=== PATIENT | female | born 1935 | race Caucasian/White ===

== ENCOUNTER 2018-01-11 10:33 | Observation (INO) | payer OTHER ==
[~2018-01-11] VITALS: Ht 152.4 cm; Wt 46.0 kg
[2018-01-11] VITALS (9 sets, daily range): BP systolic 122–165; BP diastolic 57–89; PULSE 68–124; RESP 17–20; TEMP 97.8–98.8; O2SAT 95–100
[~2018-01-11 10:33] MED LIST: AMBI10TA PO; CEPH-460 PO; GABA300C5 PO; LISI10TA3 PO
[2018-01-11] MEDS ORDERED: SODIUM CHLOR 0.9% 1000 ML INJ 1,000 ML IV ONE (11:04)
--- NOTE | 2018-01-11 11:13 | PD ---
HPI Chief Complaint: Syncope/Near-Syncope Time Seen by Provider: 10:51 Travel History International Travel<30 days: No Contact w/Intl Traveler<30days: No Traveled to known affect area: No History of Present Illness HPI The patient is a 82-year-old female who presents to the emergency department for syncope. According to EMS the patient had 2 episodes of syncope/ near-syncope earlier today with diaphoresis, lightheadedness, and questionable loss of consciousness. According to EMS the patient has been having some rectal bleeding on and off for several weeks, the patient does have a sample with her that reveals the blood and mucus. According to EMS the patient had 2 runs of SVT prior to arrival and received adenosine 6 mg intravenously which resolved the SVT. The patient does have a history of fibromyalgia, does note one previous episode of rectal bleeding, however, is unsure if she had a colonoscopy performed at that time. The patient does complain of lightheadedness and dizziness, worse with standing and walking, as well as with exertion. Symptoms are moderate. There are no current alleviating factors. PFSH Past Medical History Cardiovascular Problems: Yes (HTN) Fibromyalgia: Yes Gastrointestinal Disorders: Yes (GASTRITIS) Genitourinary: Yes Hypertension: Yes Kidney Stones: Yes ?: Not : 1 Para: 1 Past Surgical History Cholecystectomy: Yes Social History Alcohol Use: No Tobacco Use: No Substance Use: No Allergies-Medications (Allergen,Severity, Reaction): Coded Allergies: No Known Allergies (Unverified , 11/13/16) Reported Meds & Prescriptions Reported Meds & Active Scripts Active Keflex (Cephalexin) 500 Mg Cap 500 Mg PO BID 7 Days Reported Ambien (Zolpidem Tartrate) 10 Mg Tab 10 Mg PO HS PRN Lisinopril 10 Mg Tab 10 Mg PO DAILY Gabapentin 300 Mg Cap 300 Mg PO BID Review of Systems Except as stated in HPI: all other systems reviewed are Neg General / Constitutional: No: Fever HENT: Positive: Lightheadedness Cardiovascular: Positive: Syncope, Dyspnea on exertion, No: Chest Pain or Discomfort Respiratory: Positive: Shortness of Breath Gastrointestinal: Positive: Abdominal Pain (mild lower abdominal discomfort), Hematochezia, No: Nausea, Vomiting Musculoskeletal: Positive: Weakness Neurologic: Positive: Weakness, Dizziness, Syncope, No: Change in Mentation Physical Exam Narrative GENERAL: Awake, alert, 82-year-old female who appears her stated age and is in no acute respiratory distress. SKIN: Focused skin assessment warm/dry. HEAD: Atraumatic. Normocephalic. EYES: Pupils equal and round. Mild pallor noted. Pain and eyebrows. ENT: No nasal bleeding or discharge. Mucous membranes pink and moist. NECK: Trachea midline. No JVD. CARDIOVASCULAR: Regular rate and rhythm. No murmur appreciated. RESPIRATORY: No accessory muscle use. Clear to auscultation. Breath sounds equal bilaterally. GASTROINTESTINAL: Abdomen soft, mild tenderness bilateral lower quadrants, no guarding or rigidity. Rectal exam: The exam was performed in the presence of a female nurse. No gross blood. Guaiac negative. MUSCULOSKELETAL: No obvious deformities. No clubbing. No cyanosis. No edema. NEUROLOGICAL: Awake and alert. No obvious cranial nerve deficits. Motor grossly within normal limits. Normal speech. PSYCHIATRIC: Appropriate mood and affect; insight and judgment normal. Data Data Last Documented VS Vital Signs Date Time Temp Pulse Resp B/P (MAP) Pulse Ox O2 Delivery O2 Flow Rate FiO2 01/11/18 11:24 87 122/57 (78) 93 132/82 (99) 93 129/63 (85) 01/11/18 11:23 100 Room Air 01/11/18 10:43 97.8 20 Orders Orders Electrocardiogram (01/11/18 11:04) Complete Blood Count With Diff (01/11/18 11:04) Comprehensive Metabolic Panel (01/11/18 11:04) Magnesium (Mg) (01/11/18 11:04) Ckmb (Isoenzyme) Profile (01/11/18 11:04) Troponin I (01/11/18 11:04) Act Partial Throm Time (Ptt) (01/11/18 11:04) Prothrombin Time / Inr (Pt) (01/11/18 11:04) Chest, Single Ap (01/11/18 11:04) Ecg Monitoring (01/11/18 11:04) Iv Access Insert/Monitor (01/11/18 11:04) Oximetry (01/11/18 11:04) Sodium Chloride 0.9% Flush (Ns Flush) (01/11/18 11:15) Sodium Chlor 0.9% 1000 Ml Inj (Ns 1000 M (01/11/18 11:04) Orthostatic Vital Signs (01/11/18 11:04) Labs Laboratory Tests Test 01/11/18 11:00 White Blood Count 5.9 TH/MM3 Red Blood Count 3.64 MIL/MM3 Hemoglobin 10.4 GM/DL Hematocrit 31.4 % Mean Corpuscular Volume 86.2 FL Mean Corpuscular Hemoglobin 28.6 PG Mean Corpuscular Hemoglobin Concent 33.2 % Red Cell Distribution Width 13.0 % Platelet Count 335 TH/MM3 Mean Platelet Volume 7.9 FL Neutrophils (%) (Auto) 69.9 % Lymphocytes (%) (Auto) 20.1 % Monocytes (%) (Auto) 8.6 % Eosinophils (%) (Auto) 1.1 % Basophils (%) (Auto) 0.3 % Neutrophils # (Auto) 4.1 TH/MM3 Lymphocytes # (Auto) 1.2 TH/MM3 Monocytes # (Auto) 0.5 TH/MM3 Eosinophils # (Auto) 0.1 TH/MM3 Basophils # (Auto) 0.0 TH/MM3 CBC Comment DIFF FINAL Differential Comment Prothrombin Time 10.4 SEC Prothromb Time International Ratio 1.0 RATIO Activated Partial Thromboplast Time 20.7 SEC Blood Urea Nitrogen 15 MG/DL Creatinine 0.78 MG/DL Random Glucose 108 MG/DL Total Protein 7.3 GM/DL Albumin 3.3 GM/DL Calcium Level 8.8 MG/DL Magnesium Level 2.0 MG/DL Alkaline Phosphatase 118 U/L Aspartate Amino Transf (AST/SGOT) 35 U/L Alanine Aminotransferase (ALT/SGPT) 50 U/L Total Bilirubin 0.2 MG/DL Sodium Level 142 MEQ/L Potassium Level 4.3 MEQ/L Chloride Level 109 MEQ/L Carbon Dioxide Level 25.1 MEQ/L Anion Gap 8 MEQ/L Estimat Glomerular Filtration Rate 71 ML/MIN Total Creatine Kinase 59 U/L Troponin I LESS THAN 0.02 NG/ML MDM Medical Decision Making Medical Screen Exam Complete: Yes Emergency Medical Condition: Yes Medical Record Reviewed: Yes Interpretation(s) EKG reveals normal sinus rhythm with a rate in 94. No ischemic changes or ectopy noted. Last Impressions Chest X-Ray 01/11/18 1104 Signed Impressions: Service Date/Time: Thursday, January 11, 2018 11:15 - CONCLUSION: 1. No acute cardiopulmonary disease. Agustin Saleh MD Laboratory Tests Test 01/11/18 11:00 White Blood Count 5.9 TH/MM3 Red Blood Count 3.64 MIL/MM3 Hemoglobin 10.4 GM/DL Hematocrit 31.4 % Mean Corpuscular Volume 86.2 FL Mean Corpuscular Hemoglobin 28.6 PG Mean Corpuscular Hemoglobin Concent 33.2 % Red Cell Distribution Width 13.0 % Platelet Count 335 TH/MM3 Mean Platelet Volume 7.9 FL Neutrophils (%) (Auto) 69.9 % Lymphocytes (%) (Auto) 20.1 % Monocytes (%) (Auto) 8.6 % Eosinophils (%) (Auto) 1.1 % Basophils (%) (Auto) 0.3 % Neutrophils # (Auto) 4.1 TH/MM3 Lymphocytes # (Auto) 1.2 TH/MM3 Monocytes # (Auto) 0.5 TH/MM3 Eosinophils # (Auto) 0.1 TH/MM3 Basophils # (Auto) 0.0 TH/MM3 CBC Comment DIFF FINAL Differential Comment Prothrombin Time 10.4 SEC Prothromb Time International Ratio 1.0 RATIO Activated Partial Thromboplast Time 20.7 SEC Blood Urea Nitrogen 15 MG/DL Creatinine 0.78 MG/DL Random Glucose 108 MG/DL Total Protein 7.3 GM/DL Albumin 3.3 GM/DL Calcium Level 8.8 MG/DL Magnesium Level 2.0 MG/DL Alkaline Phosphatase 118 U/L Aspartate Amino Transf (AST/SGOT) 35 U/L Alanine Aminotransferase (ALT/SGPT) 50 U/L Total Bilirubin 0.2 MG/DL Sodium Level 142 MEQ/L Potassium Level 4.3 MEQ/L Chloride Level 109 MEQ/L Carbon Dioxide Level 25.1 MEQ/L Anion Gap 8 MEQ/L Estimat Glomerular Filtration Rate 71 ML/MIN Total Creatine Kinase 59 U/L Troponin I LESS THAN 0.02 NG/ML Differential Diagnosis Differential diagnosis includes arrhythmia, dysrhythmia, tachyarrhythmia, symptomatically anemia, electrolyte abnormality, dehydration, vasovagal syncope , aortic stenosis. Narrative Course IV was established, labs are drawn and sent, and the patient was placed on cardiac telemetry monitoring and continuous pulse oximetry monitoring. EKG was ordered and interpreted. Rectal exam was performed, no gross blood, guaiac negative. Patient did have SVT according to EMS, has cardiac strip from EMS which does reveal SVT. Orthostatic vital signs were obtained. The patient was administered IV fluids. The patient's hemoglobin is 10.3, she has a history of IBS with 4 previous colonoscopies by her medical secretary receptionist, Dr. Solis. The patient did have SVT prior to arrival with 2 syncopal episodes, will need 23 hour observation for telemetry monitoring and echocardiogram. If the patient has further runs of SVT or dysrhythmias, she may be a candidate for beta luke and possibly cardiology evaluation. The [facility] [employer]. Orthostatic vital signs are unremarkable. Physician Communication Physician Communication The patient has [employer], [facility] Diagnosis Primary Impression: Syncope Qualified Codes: R55 - Syncope and collapse Additional Impressions: SVT (supraventricular tachycardia) Hematochezia Admitting Information Admitting Physician Requests: Observation Condition: Stable Peter Rebolledo MD Jan 11, 2018 11:13
[2018-01-11] MEDS ORDERED: SODIUM CHLORIDE 0.9% FLUSH 10 ML FLUSH IVF PRN (11:15)
[2018-01-11 11:40] LABS: AUTOMATED NEUTROPHIL # 4.1 TH/MM3 (1.8-7.7); BASOPHIL % 0.3 % (0.0-2.0); EOSINOPHIL # 0.1 TH/MM3 (0-0.4); EOSINOPHIL % 1.1 % (0.0-4.0); HEMATOCRIT 31.4 % (35.0-46.0); HEMOGLOBIN 10.4 GM/DL (11.6-15.3); LYMPH % 20.1 % (9.0-44.0); LYMPHOCYTE # 1.2 TH/MM3 (1.0-4.8); MEAN CELL VOLUME 86.2 FL (80.0-100.0); MEAN CORPUSCULAR HEMOGLOBIN 28.6 PG (27.0-34.0); MEAN CORPUSCULAR HGB CONC 33.2 % (32.0-36.0); MEAN PLATELET VOLUME 7.9 FL (7.0-11.0); MONO % 8.6 % (0.0-8.0); MONOCYTE # 0.5 TH/MM3 (0-0.9); NEUT % 69.9 % (16.0-70.0); PLATELET COUNT 335 TH/MM3 (150-450); RED BLOOD COUNT 3.64 MIL/MM3 (4.00-5.30); WHITE BLOOD COUNT 5.9 TH/MM3 (4.0-11.0)
--- NOTE | 2018-01-11 11:50 | RADRPT ---
EXAM DATE/TIME: 01/11/2018 11:15 [facility] COMPARISON: No previous studies available for comparison. INDICATIONS : Palpitations, no chest pain MEDICAL HISTORY : Cardiovascular disease. Renal calculi. Hypertension. gastritis, fibromyalgia SURGICAL HISTORY : Cholecystectomy. ENCOUNTER: Initial ACUITY: 1 day PAIN SCORE: 0/10 LOCATION: Bilateral chest FINDINGS: A single view of the chest demonstrates the lungs to be symmetrically aerated without evidence of mas s, infiltrate or effusion. The cardiomediastinal contours are unremarkable. Degenerative changes of the left shoulder. Osseous structures are intact. CONCLUSION: 1. No acute cardiopulmonary disease. Agustin Saleh MD on January 11, 2018 at 11:48 Board Certified Radiologist. This report was verified electronically.
[2018-01-11 11:55] LABS: PROTHROMBIN TIME - PATIENT 10.4 SEC (9.8-11.6)
[2018-01-11 12:09] LABS: ALBUMIN 3.3 GM/DL (3.4-5.0); ALKALINE PHOSPHATASE 118 U/L (45-117); ALT (GPT) 50 U/L (10-53); AST (GOT) 35 U/L (15-37); BICARBONATE 25.1 MEQ/L (21.0-32.0); BLOOD UREA NITROGEN 15 MG/DL (7-18); CALCIUM 8.8 MG/DL (8.5-10.1); CHLORIDE 109 MEQ/L (98-107); CREATININE 0.78 MG/DL (0.50-1.00); GLOMERULAR FILTRATION RATE 71 ML/MIN (>89); GLUCOSE,RANDOM 108 MG/DL (74-106); SODIUM (NA) 142 MEQ/L (136-145); TOTAL BILIRUBIN ADULT 0.2 MG/DL (0.2-1.0); TOTAL PROTEIN 7.3 GM/DL (6.4-8.2); TROPONIN I LESS THAN 0.02 NG/ML (0.02-0.05)
[2018-01-11] MEDS ORDERED: SENNOSIDES 8.6 MG TAB PO PRN (13:15)
[2018-01-11] MEDS ORDERED: LACTULOSE SYRUP 20 GM/30 ML CUP PO PRN (13:15)
[2018-01-11] MEDS ORDERED: SODIUM CHLORIDE 0.9% FLUSH 10 ML FLUSH IV FLUSH PRN (13:15)
[2018-01-11] MEDS ORDERED: BISACODYL 10 MG SUPP RECTAL PRN (13:15)
[2018-01-11] MEDS ORDERED: MAGNESIUM HYDROXIDE SUSP 30 ML CUP PO PRN (13:15)
[2018-01-11] MEDS ORDERED: NALOXONE HCL 0.4 MG/ML AMP IV PUSH PRN (13:15)
--- NOTE | 2018-01-11 13:21 | HHI.HP ---
HPI Service [facility] Hospitalists Primary Care Physician Unknown Admission Diagnosis syncope, SVT, hematochezia, history of IBS Diagnoses: Chief Complaint: Syncope Rectal bleeding Travel History International Travel<30 Days: No Contact w/Intl Traveler <30 Da: No Traveled to Known Affected Are: No History of Present Illness Written by Brittany Bradley, acting as scribe for Dr. Daniels on 01/11/18 at 13: 21. This is an 82yo female with PMHX of IBS, gastritis and fibromyalgia who presents to [facility] ED with complaints of rectal bleeding and near syncopal episodes. Patient reports recurrent nightly episodes of feeling faint as if she was going to pass out for the past few weeks with associated diaphoresis, lightheadedness and nausea. She states each episode lasts no more than 5 minutes. She has had 4 or 5 negative colonoscopies in the past. She complains of significant posterior neck pain with a pulling sensation coming from her neck to her abdomen. She endorses chest pain with the near syncopal episodes. She reports generalized weakness most often occurring after she straightens up after bending over. Per [facility], while patient was en route she developed SVT and received adenosine. ED physician performed guaiac stool testing which was negative. Review of Systems Except as stated in HPI: all other systems reviewed are Neg Past Family Social History Past Medical History IBS Gastritis Fibromyalgia Insomnia Past Surgical History Cataract surgery Appendectomy Tonsillectomy Reported Medications Ambien (Zolpidem Tartrate) 10 Mg Tab 10 Mg PO HS PRN Lisinopril 10 Mg Tab 10 Mg PO DAILY Gabapentin 300 Mg Cap 300 Mg PO BID Allergies: Coded Allergies: No Known Allergies (Unverified Allergy, Unknown, 01/11/18) Active Ordered Medications Current Medications Medications (Trade) Dose Ordered Sig/Sari Route Start Time Stop Time Status Last Admin (NS Flush) 2 ml UNSCH PRN IVF 01/11/18 11:15 (NS Flush) 2 ml UNSCH PRN IV FLUSH 01/11/18 13:15 UNV (NS Flush) 2 ml BID IV FLUSH 01/11/18 21:00 UNV (Narcan Inj) 0.4 mg UNSCH PRN IV PUSH 01/11/18 13:15 UNV (Milk Of Magnesia Liq) 30 ml Q12H PRN PO 01/11/18 13:15 UNV (Senokot) 17.2 mg Q12H PRN PO 01/11/18 13:15 UNV (Dulcolax Supp) 10 mg DAILY PRN RECTAL 01/11/18 13:15 UNV (Lactulose Liq) 30 ml DAILY PRN PO 01/11/18 13:15 UNV Family History Cancer Social History Patient denies any tobacco use, EtOH consumption or illicit drug use. Physical Exam Vital Signs Vital Signs Date Time Temp Pulse Resp B/P (MAP) Pulse Ox O2 Delivery O2 Flow Rate FiO2 01/11/18 11:24 87 122/57 (78) 93 132/82 (99) 93 129/63 (85) 01/11/18 11:23 100 Room Air 01/11/18 10:47 97 Nasal Cannula 01/11/18 10:43 97.8 98 20 123/57 (79) Physical Exam GENERAL: This is a well-nourished, well-developed elderly patient, in no apparent distress. Awake and alert. Appears comfortable. SKIN: No rashes, ecchymoses or lesions. Cool and dry. HEAD: Atraumatic. Normocephalic. No temporal or scalp tenderness. EYES: Pupils equal round and reactive. Extraocular motions intact. No scleral icterus. No injection or drainage. ENT: Nose without bleeding or purulent drainage. Throat without erythema, tonsillar hypertrophy or exudate. Uvula midline. Airway patent. NECK: Trachea midline. No lymphadenopathy. Supple, nontender, no meningeal signs. CARDIOVASCULAR: Regular rate and rhythm without murmurs, gallops, or rubs. RESPIRATORY: Clear to auscultation. Breath sounds equal bilaterally. No wheezes , rales, or rhonchi. GASTROINTESTINAL: Abdomen soft, non-tender, nondistended. No hepato-splenomegaly , or palpable masses. No guarding. MUSCULOSKELETAL: Extremities without clubbing, cyanosis, or edema. No joint tenderness, effusion, or edema noted. No calf tenderness. NEUROLOGICAL: Awake and alert. Cranial nerves II through XII grossly intact. Motor and sensory grossly within normal limits. Five out of 5 muscle strength in all muscle groups. Normal speech. Laboratory Laboratory Tests Test 01/11/18 11:00 White Blood Count 5.9 Red Blood Count 3.64 Hemoglobin 10.4 Hematocrit 31.4 Mean Corpuscular Volume 86.2 Mean Corpuscular Hemoglobin 28.6 Mean Corpuscular Hemoglobin Concent 33.2 Red Cell Distribution Width 13.0 Platelet Count 335 Mean Platelet Volume 7.9 Neutrophils (%) (Auto) 69.9 Lymphocytes (%) (Auto) 20.1 Monocytes (%) (Auto) 8.6 Eosinophils (%) (Auto) 1.1 Basophils (%) (Auto) 0.3 Neutrophils # (Auto) 4.1 Lymphocytes # (Auto) 1.2 Monocytes # (Auto) 0.5 Eosinophils # (Auto) 0.1 Basophils # (Auto) 0.0 CBC Comment DIFF FINAL Differential Comment Prothrombin Time 10.4 Prothromb Time International Ratio 1.0 Activated Partial Thromboplast Time 20.7 Blood Urea Nitrogen 15 Creatinine 0.78 Random Glucose 108 Total Protein 7.3 Albumin 3.3 Calcium Level 8.8 Magnesium Level 2.0 Alkaline Phosphatase 118 Aspartate Amino Transf (AST/SGOT) 35 Alanine Aminotransferase (ALT/SGPT) 50 Total Bilirubin 0.2 Sodium Level 142 Potassium Level 4.3 Chloride Level 109 Carbon Dioxide Level 25.1 Anion Gap 8 Estimat Glomerular Filtration Rate 71 Total Creatine Kinase 59 Troponin I LESS THAN 0.02 Result Diagram: 01/11/18 1100 01/11/18 1100 Imaging Last Impressions Chest X-Ray 01/11/18 1104 Signed Impressions: Service Date/Time: Thursday, January 11, 2018 11:15 - CONCLUSION: 1. No acute cardiopulmonary disease. MD Linda Saxena VTE Risk Assessment Caprini VTE Risk Assessment: Mod/High Risk (score >= 2) Caprini Risk Assessment Model Point Value = 1 Point Value = 2 Point Value = 3 Point Value = 5 Age 41-60 Minor surgery BMI > 25 kg/m2 Swollen legs Varicose veins or History of unexplained or recurrent spontaneous Oral contraceptives or hormone replacement Sepsis (< 1 month) Serious lung disease, including pneumonia (< 1 month) Abnormal pulmonary function Acute myocardial infarction Congestive heart failure (< 1 month) History of inflammatory bowel disease Medical patient at bed rest Age 61-74 Arthroscopic surgery Major open surgery (> 45 min) Laparoscopic surgery (> 45 min) Malignancy Confined to bed (> 72 hours) Immobilizing plaster cast Central venous access Age >= 75 History of VTE Family history of VTE Factor V Leiden Prothrombin [id number] Lupus anticoagulant Anticardiolipin antibodies Elevated serum homocysteine Heparin-induced thrombocytopenia Other congenital or acquired thrombophilia Stroke (< 1 month) Elective arthroplasty Hip, pelvis, or leg fracture Acute spinal cord injury (< 1 month) Prophylaxis Regimen Total Risk Factor Score Risk Level Prophylaxis Regimen 0-1 Low Early ambulation 2 Moderate Order ONE of the following: *Sequential Compression Device (SCD) *Heparin 5000 units SQ BID 3-4 Higher Order ONE of the following medications: *Heparin 5000 units SQ TID *Enoxaparin/Lovenox 40 mg SQ daily (WT < 150 kg, CrCl > 30 mL/min) *Enoxaparin/Lovenox 30 mg SQ daily (WT < 150 kg, CrCl > 10-29 mL/min) *Enoxaparin/Lovenox 30 mg SQ BID (WT < 150 kg, CrCl > 30 mL/min) AND/OR *Sequential Compression Device (SCD) 5 or more Highest Order ONE of the following medications: *Heparin 5000 units SQ TID (Preferred with Epidurals) *Enoxaparin/Lovenox 40 mg SQ daily (WT < 150 kg, CrCl > 30 mL/min) *Enoxaparin/Lovenox 30 mg SQ daily (WT < 150 kg, CrCl > 10-29 mL/min) *Enoxaparin/Lovenox 30 mg SQ BID (WT < 150 kg, CrCl > 30 mL/min) AND *Sequential Compression Device (SCD) Assessment and Plan Assessment and Plan 82yo female with PMHX of IBS, gastritis and fibromyalgia who presents to [facility] ED with complaints of rectal bleeding and near syncopal episodes. //Rectal bleeding //IBS -Consult GI, appreciate recommendations -Hgb 10.4. Monitor CBC closely. Serial H&H's ordered. -patient is hemodynamically stable, continue to monitor VS //SVT //Near syncopal episodes -Consult cardiology, appreciate recommendations -Orthostatic BP measurements negative -start on low dose BB, metoprolol 25mg BID -continuous cardiac monitoring //Hypertension, controlled -Hold home dose of Lisinopril -started on BB -monitor BP and adjust tx accordingly //Fibromyalgia -Chronic, stable //Insomnia -Will resume patients home dose of Ambien //DVT prophylaxis -avoid chemoprophylaxis due to bleeding -Bilateral SCD/ROLAND hose Discussed Condition With ED physician, patient This note was transcribed by caryl Bradley. I, Dr. Anthony Daniels personally performed the history, physical exam, and medical decision making; and confirmed the accuracy of the information in the transcribed note. Authenticated by Dr. Anthony Daniels on 01/11/18 at 15:59. Brittany Bradley Jan 11, 2018 13:21 Anthony Daniels MD Jan 11, 2018 15:59
[2018-01-11] MEDS ORDERED: METOPROLOL TARTRATE 25 MG TAB PO ONE (14:00)
[2018-01-11] MEDS ORDERED: ZOLPIDEM TARTRATE 5 MG TAB PO PRN (14:00)
--- NOTE | 2018-01-11 14:28 | PD.CONS ---
HPI History of Present Illness This is a 82 year old female with hx IBS, fibromyalgia who presented with complaint of fainting for the past few days, sweating, and abd pain, and red blood in stools. Per report she developed SVT en route and was given adenosine. She has been having red blood and mucus int he stools for the past few weeks. She says blood is scant. SHe has had "razor blade like" pain in the lower abd that is constant. She has had this pain before but this time it is worse and more constant. Denies n/v, black tarry stool. She normally alternates between constipation and diarrhea. Her last colonoscopy was a few months ago with Dr Solis and finding of IBS. She had EGD long time ago, can recall no further details. (Lucía Chris) PFSH Past Medical History IBS Gastritis Fibromyalgia Insomnia Past Surgical History Cataract surgery Appendectomy Tonsillectomy (Lucía Chris) Coded Allergies: No Known Allergies (Unverified Allergy, Unknown, 01/11/18) Family History Cancer Social History Patient denies any tobacco use, EtOH consumption or illicit drug use. (Lucía Chris) Review of Systems Constitutional: DENIES: Fever Eyes: DENIES: Blurred vision Ears, nose, mouth, throat: DENIES: Hearing loss Respiratory: DENIES: Cough Cardiovascular: DENIES: Chest pain Gastrointestinal: COMPLAINS OF: Abdominal pain, Bloody stools, Constipation, DENIES: Black stools, Nausea, Vomiting Genitourinary: DENIES: Hematuria Musculoskeletal: COMPLAINS OF: Joint pain, DENIES: Joint Swelling Integumentary: DENIES: Abnormal pigmentation Neurologic: DENIES: Abnormal gait Psychiatric: DENIES: Confusion (Lucía Chris) GI Exam Vitals I&O Vital Signs Date Time Temp Pulse Resp B/P (MAP) Pulse Ox O2 Delivery O2 Flow Rate FiO2 01/11/18 13:44 88 17 139/80 (99) 98 Room Air 01/11/18 11:24 87 122/57 (78) 93 132/82 (99) 93 129/63 (85) 01/11/18 11:23 100 Room Air 01/11/18 10:47 97 Nasal Cannula 01/11/18 10:43 97.8 98 20 123/57 (79) Imaging Last Impressions Chest X-Ray 01/11/18 1104 Signed Impressions: Service Date/Time: Thursday, January 11, 2018 11:15 - CONCLUSION: 1. No acute cardiopulmonary disease. Agustin Saleh MD Laboratory Test 01/11/18 11:00 White Blood Count 5.9 TH/MM3 Red Blood Count 3.64 MIL/MM3 Hemoglobin 10.4 GM/DL Hematocrit 31.4 % Mean Corpuscular Volume 86.2 FL Mean Corpuscular Hemoglobin 28.6 PG Mean Corpuscular Hemoglobin Concent 33.2 % Red Cell Distribution Width 13.0 % Platelet Count 335 TH/MM3 Mean Platelet Volume 7.9 FL Neutrophils (%) (Auto) 69.9 % Lymphocytes (%) (Auto) 20.1 % Monocytes (%) (Auto) 8.6 % Eosinophils (%) (Auto) 1.1 % Basophils (%) (Auto) 0.3 % Neutrophils # (Auto) 4.1 TH/MM3 Lymphocytes # (Auto) 1.2 TH/MM3 Monocytes # (Auto) 0.5 TH/MM3 Eosinophils # (Auto) 0.1 TH/MM3 Basophils # (Auto) 0.0 TH/MM3 CBC Comment DIFF FINAL Differential Comment Prothrombin Time 10.4 SEC Prothromb Time International Ratio 1.0 RATIO Activated Partial Thromboplast Time 20.7 SEC Blood Urea Nitrogen 15 MG/DL Creatinine 0.78 MG/DL Random Glucose 108 MG/DL Total Protein 7.3 GM/DL Albumin 3.3 GM/DL Calcium Level 8.8 MG/DL Magnesium Level 2.0 MG/DL Alkaline Phosphatase 118 U/L Aspartate Amino Transf (AST/SGOT) 35 U/L Alanine Aminotransferase (ALT/SGPT) 50 U/L Total Bilirubin 0.2 MG/DL Sodium Level 142 MEQ/L Potassium Level 4.3 MEQ/L Chloride Level 109 MEQ/L Carbon Dioxide Level 25.1 MEQ/L Anion Gap 8 MEQ/L Estimat Glomerular Filtration Rate 71 ML/MIN Total Creatine Kinase 59 U/L Troponin I LESS THAN 0.02 NG/ML Physical Examination HEENT: PERRL; normocephalic; atraumatic; no jaundice. CHEST: CTA CARDIAC: RRR ABDOMEN: Soft, nondistended, lower abd TTP; no hepatosplenomegaly; bowel sounds are present in all four quadrants. EXTREMITIES: No clubbing, cyanosis, or edema. SKIN: Normal; no rash; no jaundice. DEAF TEACHER: No focal deficits; alert and oriented times three. (Lucía Chris) Assessment and Plan Plan ASSESSMENT - rectal bleeding, abd pain, alternating diarrhea and constipation - likely IBS. pt had colonoscopy with Dr Solis few months ago and afterwards he told her she had IBS and nothing to do for it. She takes no meds other than probiotics. SHe would prefer not to do another colonoscopy but would like to try some medications. SHe would like to switch GI Dr and see us in the office. - fibromyalgia PLAN - trial bentyl - IDA - monitor HH - notify GI of active bleeding - f/u with GI in office - consider FODMAP - consider cholestyramine for loose stool - consider linzess for constipation pt seen by myself and Dr Pickard and this note is written on his behalf (Lucía Chris) Physician Comments Patient seen and examined Agree with above Continue with current supportive care Monitor labs IVS precautions (Giles Pickard MD) Lucía Chris Jan 11, 2018 14:28 Giles Pickard MD Jan 11, 2018 19:52
[2018-01-11] MEDS: DICYCLOMINE HCL 20 MG TAB PO SCH (17:59)
--- NOTE | 2018-01-11 19:56 | MB ---
cc: PANCHO CERVANTES M.D. DATE OF CONSULTATION: 01/11/2018. REASON FOR CONSULTATION: Evaluation of S-T-T. HISTORY OF PRESENT ILLNESS: Alpa Eldridge is an 82-year-old woman. She no prior cardiac history or cardiac diagnoses. She has been having some what she thinks is hematochezia. She went to her doctor and was told she needed to go to the emergency room. She tried to drive and it sounds like she stopped at a friend's place and then they called for pre-syncope and chest pain. She was found to be in supraventricular tachycardia and had a heart rate of 194 beats per minute. We do have the strip available and she received adenosine with conversion to sinus rhythm. She has been in sinus rhythm since that time. It sounds like she has had two similar episodes last year which she described as panic attacks with somewhat similar symptoms. She has no prior history of coronary disease. She is a nonsmoker. She does have hypertension and is on lisinopril for that. Denies heart disease in her family. PAST MEDICAL HISTORY: Her past medical history includes: 1. Irritable bowel syndrome. 2. Fibromyalgia. 3. Depression. PAST SURGICAL HISTORY: Cholecystectomy. SOCIAL HISTORY: She is . She is from [facility]. Nonsmoker and non-drinker. She has one child. REVIEW OF SYSTEMS: The review of systems is notable for some abdominal pain, muscle aches and a report of hematochezia. PHYSICAL EXAMINATION: GENERAL: The physical exam shows a well-developed, well-nourished elderly female in no acute distress. VITAL SIGNS: The vital signs are charted. HEAD, EYES, EARS, NOSE, THROAT: Unremarkable. NECK: No jugular venous distention. No bruits. CHEST: Clear to auscultation. CARDIAC: S1 and S2 regular rate and rhythm with a 1-2/6 systolic ejection murmur. ABDOMEN: No masses. EXTREMITIES: No cyanosis, clubbing or edema. Pulses are intact. EKGS: EKG shows sinus rhythm at 94 beats per minute with no acute S-T-T wave changes. Strips available show supraventricular tachycardia at 194 beats per minute which converted to sinus rhythm after adenosine. LABORATORY STUDIES: Initial troponin is negative. Creatinine is 0.78. Hematocrit is 31.4. 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 It sounds like she has had two episodes last year. She has converted. She did have chest pain during the episodes, which I think is probably from the extreme tachycardia. Initial troponin is negative. RECOMMENDATIONS: 1. Repeat troponin the morning. 2. If she has a troponin bump, it is very possible just from being in the tachycardia for about an hour and we will probably do a nuclear stress test if that is the case. 3. In the meantime, I am changing her beta luke to Diltiazem 240 milligrams daily for supression. 4. Probably do outpatient follow up with Dr. Simons for consideration of an ablation procedure. Further therapy to be determined. MD JUAN Wiggins/ABBY /7:12 PM /7:41 PM
[2018-01-11] MEDS: SODIUM CHLORIDE 0.9% FLUSH 10 ML FLUSH IV FLUSH SCH ×2 (21:00→21:26)
[2018-01-11] MEDS ORDERED: METOPROLOL TARTRATE 25 MG TAB PO SCH (21:00)
--- NOTE | 2018-01-11 22:30 | EKG ---
Date Performed: 01/11/2018 Time Performed: 10:46:43 PTAGE: 82 years EKG: Sinus rhythm NORMAL ECG NO PREVIOUS TRACING DOCTOR: Keren Granado Interpretating Date/Time 01/11/2018 22:28:16
[2018-01-11] MEDS ORDERED: DILTIAZEM HCL 60 MG TAB PO ONE (23:50)
[2018-01-12] VITALS (7 sets, daily range): BP systolic 108–141; BP diastolic 55–65; PULSE 66–80; RESP 16–18; TEMP 96.4–98.7; O2SAT 96–98
[2018-01-12 06:50] LABS: AUTOMATED NEUTROPHIL # 3.9 TH/MM3 (1.8-7.7); BASOPHIL % 0.5 % (0.0-2.0); EOSINOPHIL # 0.1 TH/MM3 (0-0.4); EOSINOPHIL % 1.3 % (0.0-4.0); HEMATOCRIT 28.1 % (35.0-46.0); HEMOGLOBIN 9.5 GM/DL (11.6-15.3); LYMPHOCYTE # 1.9 TH/MM3 (1.0-4.8); MEAN CELL VOLUME 85.3 FL (80.0-100.0); MEAN CORPUSCULAR HEMOGLOBIN 28.8 PG (27.0-34.0); MEAN CORPUSCULAR HGB CONC 33.7 % (32.0-36.0); MEAN PLATELET VOLUME 7.3 FL (7.0-11.0); MONO % 8.9 % (0.0-8.0); MONOCYTE # 0.6 TH/MM3 (0-0.9); NEUT % 60.3 % (16.0-70.0); PLATELET COUNT 336 TH/MM3 (150-450); RED CELL DISTRIBUTION WIDTH 13.2 % (11.6-17.2); WHITE BLOOD COUNT 6.5 TH/MM3 (4.0-11.0)
[2018-01-12 07:29] LABS: ALBUMIN 3.2 GM/DL (3.4-5.0); AST (GOT) 27 U/L (15-37); BICARBONATE 26.7 MEQ/L (21.0-32.0); BLOOD UREA NITROGEN 14 MG/DL (7-18); CALCIUM 9.1 MG/DL (8.5-10.1); CHLORIDE 104 MEQ/L (98-107); CREATININE 0.67 MG/DL (0.50-1.00); GLOMERULAR FILTRATION RATE 84 ML/MIN (>89); GLUCOSE,RANDOM 95 MG/DL (74-106); SODIUM (NA) 138 MEQ/L (136-145)
[2018-01-12 07:31] LABS: ALT (GPT) 43 U/L (10-53)
[2018-01-12 07:34] LABS: ALKALINE PHOSPHATASE 112 U/L (45-117); TOTAL BILIRUBIN ADULT 0.2 MG/DL (0.2-1.0); TOTAL PROTEIN 7.2 GM/DL (6.4-8.2); TROPONIN I 0.03 NG/ML (0.02-0.05)
--- NOTE | 2018-01-12 07:57 | HHI.PR ---
Subjective Remarks Patient sitting up in bed. Appears comfortable. She reports 2 small bowel movements last night. No bleeding. Denies any chest pain or shortness of breath. Denies palpitations. Feels like she can go home today. [place] any episodes of lightheadedness Objective Vital Signs Date Time Temp Pulse Resp B/P (MAP) Pulse Ox O2 Delivery O2 Flow Rate FiO2 01/12/18 04:09 68 01/12/18 03:46 98.7 74 18 108/55 (72) 96 01/12/18 01:21 74 16 141/65 (90) 97 01/12/18 00:04 80 01/11/18 23:03 98.5 68 18 165/67 (99) 95 01/11/18 21:11 98.8 68 18 123/58 (79) 96 01/11/18 20:00 72 01/11/18 16:36 71 01/11/18 15:15 98.2 124 18 124/89 (101) 97 01/11/18 13:44 88 17 139/80 (99) 98 Room Air 01/11/18 11:24 87 122/57 (78) 93 132/82 (99) 93 129/63 (85) 01/11/18 11:23 100 Room Air 01/11/18 10:47 97 Nasal Cannula 01/11/18 10:43 97.8 98 20 123/57 (79) I/O 01/11/18 01/11/18 01/11/18 01/12/18 01/12/18 01/12/18 07:00 15:00 23:00 07:00 15:00 23:00 Intake Total 1000 ml Balance 1000 ml Intake IV Total 1000 ml Result Diagram: 01/12/18 0601/12/18 06 Objective Remarks GENERAL: Patient sitting up in bed. Appears comfortable. Alert and oriented 3. SKIN: Warm and dry. HEAD: Normocephalic. EYES: No scleral icterus. No injection or drainage. NECK: Supple, trachea midline. No JVD. CARDIOVASCULAR: Regular rate and rhythm without murmurs, gallops, or rubs. RESPIRATORY: Breath sounds equal bilaterally. No accessory muscle use. GASTROINTESTINAL: Abdomen soft, non-tender, nondistended. MUSCULOSKELETAL: No cyanosis, or edema. BACK: Nontender without obvious deformity. No CVA tenderness. A/P Assessment and Plan 82yo female with PMHX of IBS, gastritis and fibromyalgia who presents to [facility] ED with complaints of rectal bleeding and near syncopal episodes. //Rectal bleeding //IBS -Consult GI, appreciate recommendations -Hgb 10.4. Monitor CBC closely. Serial H&H's ordered. -patient is hemodynamically stable, continue to monitor VS = Continue Bentyl as per GI. Appreciate assistance. //SVT //Near syncopal episodes -Consult cardiology, appreciate recommendations -Orthostatic BP measurements negative -start on low dose BB, metoprolol 25mg BID -continuous cardiac monitoring = Continue diltiazem as per cardiology. Appreciate assistance. Echocardiogram pending. //Hypertension, controlled -Hold home dose of Lisinopril -started on BB -monitor BP and adjust tx accordingly = Blood pressure acceptable. Continue to monitor. //Fibromyalgia -Chronic, stable //Insomnia -Continue patients home dose of Ambien //DVT prophylaxis -avoid chemoprophylaxis due to bleeding -Bilateral SCD/ROLAND hose Discharge Planning Pending echocardiogram, after which patient may discharge home on diltiazem, Bentyl.. Anthony Daniels MD Jan 12, 2018 07:57
[2018-01-12] MEDS ORDERED: DICY20TA10 PO (08:00)
[2018-01-12] MEDS ORDERED: DILT240C44 PO (08:00)
[2018-01-12] MEDS ORDERED: ACETAMINOPHEN 325 MG TAB PO PRN (08:15)
[2018-01-12] MEDS ORDERED: DILTIAZEM-CD 240 MG CAP ER PO SCH (09:00)
[2018-01-12] MEDS: SODIUM CHLORIDE 0.9% FLUSH 10 ML FLUSH IV FLUSH SCH (09:43)
[2018-01-12] MEDS: DICYCLOMINE HCL 20 MG TAB PO SCH ×2 (09:43→13:12)
--- NOTE | 2018-01-12 13:39 | HHI.GIFU ---
Subjective Remarks Pt in bed eating lunch. She says the bleeding has improved but that she had a loose stool earlier. THe pain is less frequent. Objective Vitals I&O Vital Signs Date Time Temp Pulse Resp B/P (MAP) Pulse Ox O2 Delivery O2 Flow Rate FiO2 01/12/18 11:45 96.5 66 18 137/65 (89) 98 01/12/18 09:40 76 01/12/18 08:46 96.4 72 17 131/61 (84) 96 01/12/18 04:09 68 01/12/18 03:46 98.7 74 18 108/55 (72) 96 01/12/18 01:21 74 16 141/65 (90) 97 01/12/18 00:04 80 01/11/18 23:03 98.5 68 18 165/67 (99) 95 01/11/18 21:11 98.8 68 18 123/58 (79) 96 01/11/18 20:00 72 01/11/18 16:36 71 01/11/18 15:15 98.2 124 18 124/89 (101) 97 01/11/18 13:44 88 17 139/80 (99) 98 Room Air I/O 01/11/18 01/11/18 01/11/18 01/12/18 01/12/18 01/12/18 07:00 15:00 23:00 07:00 15:00 23:00 Intake Total 1000 ml 500 ml Balance 1000 ml 500 ml Intake Oral 500 ml IV Total 1000 ml # Voids 2 # Bowel Movements 1 Laboratory Laboratory Tests Test 01/11/18 17:22 01/11/18 22:04 01/12/18 06:00 Hemoglobin 9.7 8.6 9.5 White Blood Count 6.5 Red Blood Count 3.30 Hematocrit 28.1 Mean Corpuscular Volume 85.3 Mean Corpuscular Hemoglobin 28.8 Mean Corpuscular Hemoglobin Concent 33.7 Red Cell Distribution Width 13.2 Platelet Count 336 Mean Platelet Volume 7.3 Neutrophils (%) (Auto) 60.3 Lymphocytes (%) (Auto) 29.0 Monocytes (%) (Auto) 8.9 Eosinophils (%) (Auto) 1.3 Basophils (%) (Auto) 0.5 Neutrophils # (Auto) 3.9 Lymphocytes # (Auto) 1.9 Monocytes # (Auto) 0.6 Eosinophils # (Auto) 0.1 Basophils # (Auto) 0.0 CBC Comment DIFF FINAL Differential Comment Blood Urea Nitrogen 14 Creatinine 0.67 Random Glucose 95 Total Protein 7.2 Albumin 3.2 Calcium Level 9.1 Alkaline Phosphatase 112 Aspartate Amino Transf (AST/SGOT) 27 Alanine Aminotransferase (ALT/SGPT) 43 Total Bilirubin 0.2 Sodium Level 138 Potassium Level 3.7 Chloride Level 104 Carbon Dioxide Level 26.7 Anion Gap 7 Estimat Glomerular Filtration Rate 84 Troponin I 0.03 Imaging Last Impressions Chest X-Ray 01/11/18 1104 Signed Impressions: Service Date/Time: Thursday, January 11, 2018 11:15 - CONCLUSION: 1. No acute cardiopulmonary disease. Agustin Saleh MD Physical Exam HEENT: PERRL; normocephalic; atraumatic; no jaundice. CHEST: CTA CARDIAC: RRR ABDOMEN: Soft, nondistended, nontender; no hepatosplenomegaly; bowel sounds are present in all four quadrants. EXTREMITIES: No clubbing, cyanosis, or edema. SKIN: Normal; no rash; no jaundice. HOME CARE SCHEDULER: No focal deficits; alert and oriented times three. Assessment and Plan Plan ASSESSMENT - rectal bleeding, abd pain, alternating diarrhea and constipation - likely IBS. pt had colonoscopy with Dr Solis few months ago and afterwards he told her she had IBS and nothing to do for it. She takes no meds other than probiotics. SHe would prefer not to do another colonoscopy but would like to try some medications. SHe would like to switch GI Dr and see us in the office. - fibromyalgia 01/12/18 Says her pain is less frequent but still there? nontender on exam. eating. + BM bleeding has lessened. HH stable. echo pending PLAN - trial bentyl - IDA - monitor HH - notify GI of active bleeding - f/u with GI in office - consider FODMAP - consider cholestyramine for loose stool - consider linzess for constipation - ok to d/c from GI standpoint pt seen by myself and Dr Evans and this note is written on her behalf Lucía Chris Jan 12, 2018 13:39
--- NOTE | 2018-01-12 16:54 | ECHRPT ---
Indication: CONCLUSIONS Normal left ventricular size. Wall thickness is normal. The left ventricular systolic function is low normal with an estimated ejection fraction in the rang e of 50- 55%. Mitral annular calcification is present. mild to moderate mitral valve regurgitation. Trace aortic valve regurgitation. There is mild tricuspid valve regurgitation. BP: / HR: Rhythm: MEASUREMENTS (Male / Female) Normal Values Technical Quality:Good 2D ECHO LV Diastolic Diameter PLAX 4.1 cm 4.2 - 5.9 / 3.9 - 5.3 cm LV Systolic Diameter PLAX 2.9 cm IVS Diastolic Thickness 1.1 cm 0.6 - 1.0 / 0.6 - 0.9 cm LVPW Diastolic Thickness 0.6 cm 0.6 - 1.0 / 0.6 - 0.9 cm LV Relative Wall Thickness 0.4 RV Internal Dim ED PLAX 1.9 cm LA Systolic Diameter LX 3.3 cm 3.0 - 4.0 / 2.7 - 3.8 cm M-MODE Aortic Root Diameter MM 3.3 cm AV Cusp Separation MM 1.8 cm DOPPLER Mitral E Point Velocity 86.4 cm/s Mitral A Point Velocity 117.0 cm/s Mitral E to A Ratio 0.7 TR Peak Velocity 227.3 cm/s TR Peak Gradient 20.7 mmHg FINDINGS LEFT VENTRICLE Normal left ventricular size. Wall thickness is normal. The left ventricular systolic function is low normal with an estimated ejection fraction in the rang e of 50- 55%. RIGHT VENTRICLE Normal right ventricular size and systolic function. LEFT ATRIUM The left atrial size is normal. RIGHT ATRIUM The right atrial size is normal. ATRIAL SEPTUM Normal atrial septal thickness without atrial level shunting by limited color doppler interrogation. AORTA The aortic root and proximal ascending aorta are normal in size on limited imaging. MITRAL VALVE Mitral annular calcification is present. [id number] mitral valve regurgitation. AORTIC VALVE Trace aortic valve regurgitation. TRICUSPID VALVE There is mild tricuspid valve regurgitation. PULMONARY VALVE The pulmonary valve is not well visualized. VESSELS The inferior vena cava is normal in size. PERICARDIUM No pericardial effusion. Carlos A Palacios MD, FACC, FSCAI (Electronically Signed) Final Date:12 January 2018 16:53
== END 2018-01-12 15:39 | disposition home or self-care (01) ==
LOC: NEPC 10:33 → NEDA 13:14 → NEPFCDU 14:59
PROVIDERS: ADMIT Internal Medicine; ATTEND Internal Medicine
DX: K92.1 Melena (principal); K58.0 Irritable bowel syndrome with diarrhea; I47.1 Supraventricular tachycardia; R55 Syncope and collapse; R42 Dizziness and giddiness; R61 Generalized hyperhidrosis; I10 Essential (primary) hypertension; M79.7 Fibromyalgia; G47.00 Insomnia, unspecified; M54.2 Cervicalgia; R53.1 Weakness; F32.9 Major depressive disorder, single episode, unspecified; Z79.899 Other long term (current) drug therapy
CPT/HCPCS: 71045; 80053; 82550; 83735; 84484; 85018; 85025; 85610; 85730; 93005; 93306; 99285; G0378; J7030